=== PATIENT | female | born 1955 | race Caucasian/White ===

== ENCOUNTER 2017-05-02 22:28 | Emergency (ER) | payer MEDICAID ==
[~2017-05-02] VITALS: Ht 162.6 cm; Wt 67.0 kg
[~2017-05-02 22:28] MED LIST: ALBU18HF INH; AMOX-291 PO; ASPI325T17 PO; BENZ-17 PO; DIPH25CA61 PO; DOCU-131 PO; GABA300C10 PO; HYDR-3240 PO; HYDR25TA6 PO; HYPR15DR5 RIGHTEYE; IBUP-1222 PO; IBUP200C5 PO; LORA10TA3 PO; MELO7.5T31 PO; MINE3.5O31 RIGHTEYE; OMEP-110 PO; OXYC-302 PO; OXYC1TAB8 PO; PRED5TAB PO; ZOLP-413 PO
[2017-05-02 22:31] VITALS: BP 186/96
[2017-05-02] MEDS ORDERED: OXYcodone/APAP 5/325MG TABLET ONE (23:24)
[2017-05-02] MEDS ORDERED: OXYcodone/APAP 5/325MG TABLET PO ONE (23:30)
[2017-05-02] MEDS ORDERED: ALBUTEROL/IPRATROPIUM 2.5MG/0.5MG, 3 ML NEB ONE (23:30)
[2017-05-03] MEDS ORDERED: DEXAMETHASONE 4 MG TABLET PO ONE (00:30)
[2017-05-03] MEDS ORDERED: ACYCLOVIR 800 MG TABLET PO ONE (00:30)
[2017-05-03] MEDS ORDERED: DEXAMETHASONE 4 MG/ML, 5ML ONE (00:41)
== END 2017-05-03 01:07 | disposition home or self-care (01) ==
LOC: ED 05-03 01:00
DX: B02.9 Zoster without complications (principal); I10 Essential (primary) hypertension; Z79.52 Long term (current) use of systemic steroids
CPT/HCPCS: 71020; 93005; 94640; 99284; J7620

== ENCOUNTER 2017-06-08 04:20 | Emergency (ER) | payer MEDICAID ==
[~2017-06-08] VITALS: Ht 162.6 cm; Wt 68.0 kg
[2017-06-08] MEDS ORDERED: SODIUM CHLORIDE 0.9% 1,000 ML IV ONE (04:22)
[2017-06-08] MEDS ORDERED: ALBUTEROL/IPRATROPIUM 2.5MG/0.5MG, 3 ML ONE (04:26)
[2017-06-08] MEDS ORDERED: SODIUM CHLORIDE 0.9% 1,000ML IVBOLUS ONE (04:30)
[2017-06-08] MEDS ORDERED: LORazepam 2 MG/ML, 1ML IVP ONE (04:30)
[2017-06-08] MEDS ORDERED: PLEASE ENTER HEIGHT AND WEIGHT MC SCH (04:30)
[2017-06-08] MEDS ORDERED: ALBUTEROL/IPRATROPIUM 2.5MG/0.5MG, 3 ML NPPB PRN (04:30)
[2017-06-08] MEDS ORDERED: MAGNESIUM SULFATE PMX 2GM/50ML 50 ML IV ONE (04:30)
[2017-06-08] MEDS ORDERED: methylPREDNISolone SOD SUCC 125 MG/2 ML IVP ONE (04:30)
[2017-06-08] MEDS ORDERED: SODIUM CHLORIDE FLUSH 10ML SYR IVF ONE (04:30)
[2017-06-08] MEDS ORDERED: methylPREDNISolone SOD SUCC 125 MG/2 ML ONE (04:33)
[2017-06-08] MEDS ORDERED: LORazepam 2 MG/ML, 1ML ONE (04:34)
[2017-06-08] MEDS: ALBUTEROL/IPRATROPIUM 2.5MG/0.5MG, 3 ML NPPB SCH ×2 (04:34→04:56)
[2017-06-08 05:02] LABS: BASOPHILS # (AUTO) 0.03 x10^3/uL (0-0.1); BASOPHILS % (AUTO) 1 % (0-1); EOSINOPHILS % (AUTO) 7 % (1-7); LYMPHOCYTES # (AUTO) 2.38 x10^3/uL (1-3.4); LYMPHOCYTES % (AUTO) 43 % (22-44); MD NO; MEAN CORPUSCULAR HEMOGLOBIN 29.3 pg (27.0-34.8); MEAN CORPUSCULAR HGB CONC 33.3 g/dL (32.4-35.8); MEAN PLATELET VOLUME 8.7 fL (7.4-10.4); MONOCYTES # (AUTO) 0.35 x10^3/uL (0.2-0.8); MONOCYTES % (AUTO) 6 % (2-9); NEUTROPHILS # (AUTO) 2.42 x10^3/uL (1.8-6.8); NEUTROPHILS % (AUTO) 43 % (42-75); PLATELET COUNT 193 x10^3/uL (130-400); RED BLOOD COUNT 5.01 x10^6/uL (3.82-5.3); RED CELL DISTRIBUTION WIDTH 13.3 % (9.6-15.2)
[2017-06-08] MEDS ORDERED: OXYC1TAB7 PO (05:10)
[2017-06-08] MEDS ORDERED: ACYC800T4 PO (05:10)
[2017-06-08 05:14] LABS: ALANINE AMINOTRANSFERASE 21 U/L (12-78); ALBUMIN 4.2 g/dL (3.4-5.0); ANION GAP 3 mmol/L (5-15); CALCIUM 9.1 mg/dL (8.5-10.1); CHLORIDE 106 mmol/L (98-107)
[2017-06-08 05:18] LABS: ALKALINE PHOSPHATASE 89 U/L (45-117); BILIRUBIN,TOTAL 0.3 mg/dL (0.2-1.0); TOTAL PROTEIN 7.8 g/dL (6.4-8.2); TROPONIN I < 0.015 ng/mL (0.000-0.045)
[2017-06-08 06:06] VITALS: BP 133/79
[2017-06-08 06:13] LABS: RAPID INFLUENZA A Negative (Negative); RAPID INFLUENZA B Negative (Negative)
== END 2017-06-08 10:38 | disposition home or self-care (01) ==
LOC: ED 05:33 → EDIP 06:03 → UNDOADMIN 06:03 → SUATTDRO 06:06 → UNDODISIN 10:35
PROVIDERS: ATTEND Hospitalist
DX: J45.51 Severe persistent asthma with (acute) exacerbation (principal); J45.52 Severe persistent asthma with status asthmaticus; J96.01 Acute respiratory failure with hypoxia; I10 Essential (primary) hypertension
CPT/HCPCS: 36415; 36600; 71045; 80053; 82803; 83880; 84484; 85025; 87040; 87400; 93005; 94640; 96361; 96374; 96375; 99291; J2060; J2930; J3475; J7030; J7620

== ENCOUNTER 2017-07-31 08:38 | Inpatient (IN) | payer MEDICAID ==
[~2017-07-31] VITALS: Ht 162.6 cm; Wt 66.0 kg
[~2017-07-31 08:38] MED LIST changes: +ACYC800T4 PO; +OXYC1TAB7 PO
[2017-07-31] MEDS ORDERED: methylPREDNISolone SOD SUCC 125 MG/2 ML ONE (08:53)
[2017-07-31] MEDS ORDERED: methylPREDNISolone SOD SUCC 125 MG/2 ML IVP ONE (09:00)
[2017-07-31] MEDS ORDERED: SODIUM CHLORIDE FLUSH 10ML SYR IVF ONE (09:00)
[2017-07-31] MEDS ORDERED: IPRATROPIUM 0.5 MG/2.5 ML INHA NPPB ONE (09:00)
[2017-07-31] MEDS ORDERED: ALBUTEROL 0.5%, 20ML NPPBCONT PRN (09:00)
[2017-07-31] MEDS ORDERED: ALBUTEROL 0.5%, 20ML ONE (09:00)
[2017-07-31] MEDS ORDERED: IPRATROPIUM 0.5 MG/2.5 ML INHA ONE (09:01)
[2017-07-31 09:23] LABS: BASOPHILS # (AUTO) 0.03 x10^3/uL (0-0.1); BASOPHILS % (AUTO) 0 % (0-1); EOSINOPHILS # (AUTO) 0.27 x10^3/uL (0-0.4); EOSINOPHILS % (AUTO) 3 % (1-7); LYMPHOCYTES % (AUTO) 12 % (22-44); MD NO; MEAN CORPUSCULAR HEMOGLOBIN 29.7 pg (27.0-34.8); MEAN CORPUSCULAR HGB CONC 34.3 g/dL (32.4-35.8); MEAN CORPUSCULAR VOLUME 86.6 fL (80-100); MEAN PLATELET VOLUME 8.8 fL (7.4-10.4); MONOCYTES # (AUTO) 0.42 x10^3/uL (0.2-0.8); MONOCYTES % (AUTO) 4 % (2-9); NEUTROPHILS # (AUTO) 8.86 x10^3/uL (1.8-6.8); NEUTROPHILS % (AUTO) 81 % (42-75); PLATELET COUNT 228 x10^3/uL (130-400); RED BLOOD COUNT 5.23 x10^6/uL (3.82-5.3); RED CELL DISTRIBUTION WIDTH 12.1 % (9.6-15.2)
[2017-07-31 09:30] LABS: ALANINE AMINOTRANSFERASE 15 U/L (12-78); ALBUMIN 4.9 g/dL (3.4-5.0); ANION GAP 7 mmol/L (5-15); CALCIUM 9.4 mg/dL (8.5-10.1); CHLORIDE 105 mmol/L (98-107); CREATININE 0.66 mg/dL (0.55-1.02)
[2017-07-31 09:34] LABS: ALKALINE PHOSPHATASE 90 U/L (45-117); BILIRUBIN,TOTAL 0.9 mg/dL (0.2-1.0); TOTAL PROTEIN 8.3 g/dL (6.4-8.2); TROPONIN I < 0.015 ng/mL (0.000-0.045)
[2017-07-31] MEDS ORDERED: ACETAMINOPHEN 325 MG TABLET PO PRN (12:00)
[2017-07-31] MEDS ORDERED: POLYETHYLENE GLYCOL 17 GM PACKET PO PRN (12:00)
[2017-07-31] MEDS ORDERED: DOCUSATE 100 MG CAPSULE PO PRN (12:00)
[2017-07-31] MEDS ORDERED: ENALAPRILAT 1.25 MG/ML, 2ML IVPush PRN (12:00)
[2017-07-31] MEDS ORDERED: BISACODYL 10 MG SUPP PR PRN (12:00)
[2017-07-31] MEDS ORDERED: hydrALAzine 20 MG/ML, 1ML IVPush PRN (12:00)
[2017-07-31] MEDS ORDERED: ONDANSETRON 2MG/ML, 2ML IVPush PRN (12:00)
[2017-07-31] MEDS ORDERED: GUAIFENESIN/DM 200-20MG, 10ML UDC PO PRN (12:00)
[2017-07-31 12:13] VITALS: BP 102/69
[2017-07-31] MEDS ORDERED: TEMPLATE NON-FORMULARY MED. (Albuterol Sulfate (Ventolin Hfa) 2 PUFF(S)) INH PRN (12:30)
[2017-07-31] MEDS ORDERED: ALBUTEROL SULFATE 2.5 MG/3 ML HHN PRN (12:30)
[2017-07-31] MEDS: ENOXAPARIN 40 MG/0.4 ML SQ SCH (13:23)
[2017-07-31] MEDS: methylPREDNISolone SOD SUCC 125 MG/2 ML IVPush SCH ×2 (14:51→21:09)
[2017-07-31] MEDS: ALBUTEROL SULFATE 2.5 MG/3 ML NPPB SCH ×3 (15:00→22:00)
[2017-07-31 19:26] VITALS: BP 118/68
[2017-08-01 03:20] VITALS: BP 107/63
[2017-08-01] MEDS: methylPREDNISolone SOD SUCC 125 MG/2 ML IVPush SCH ×4 (03:36→23:00)
[2017-08-01 05:31] LABS: CHLORIDE 105 mmol/L (98-107)
[2017-08-01 05:39] LABS: BASOPHILS # (AUTO) 0.01 x10^3/uL (0-0.1); BASOPHILS % (AUTO) 0 % (0-1); EOSINOPHILS % (AUTO) 0 % (1-7); LYMPHOCYTES # (AUTO) 0.88 x10^3/uL (1-3.4); LYMPHOCYTES % (AUTO) 8 % (22-44); MD NO; MEAN CORPUSCULAR HEMOGLOBIN 29.7 pg (27.0-34.8); MEAN CORPUSCULAR HGB CONC 34.5 g/dL (32.4-35.8); MEAN CORPUSCULAR VOLUME 86.1 fL (80-100); MEAN PLATELET VOLUME 9.1 fL (7.4-10.4); MONOCYTES # (AUTO) 0.11 x10^3/uL (0.2-0.8); MONOCYTES % (AUTO) 1 % (2-9); NEUTROPHILS # (AUTO) 10.33 x10^3/uL (1.8-6.8); NEUTROPHILS % (AUTO) 91 % (42-75); PLATELET COUNT 221 x10^3/uL (130-400); RED BLOOD COUNT 4.46 x10^6/uL (3.82-5.3); RED CELL DISTRIBUTION WIDTH 12.6 % (9.6-15.2)
[2017-08-01 05:46] LABS: ANION GAP 9 mmol/L (5-15); CREATININE 0.61 mg/dL (0.55-1.02)
[2017-08-01] MEDS: ALBUTEROL SULFATE 2.5 MG/3 ML NPPB SCH ×5 (06:00→22:00)
[2017-08-01 07:13] VITALS: BP 103/69
[2017-08-01] MEDS: ENOXAPARIN 40 MG/0.4 ML SQ SCH (12:57)
[2017-08-01 13:59] VITALS: BP 122/67
[2017-08-01 20:40] VITALS: BP 140/80
[2017-08-01 20:58] LABS: TROPONIN I < 0.015 ng/mL (0.000-0.045)
[2017-08-02 02:00] VITALS: BP 112/58
[2017-08-02] MEDS: ALBUTEROL SULFATE 2.5 MG/3 ML NPPB SCH ×2 (06:00→10:02)
[2017-08-02] MEDS: methylPREDNISolone SOD SUCC 125 MG/2 ML IVPush SCH ×2 (06:37→12:28)
[2017-08-02 06:41] VITALS: BP 124/73
[2017-08-02] MEDS ORDERED: PRED20TA PO (12:13)
[2017-08-02] MEDS: ENOXAPARIN 40 MG/0.4 ML SQ SCH (12:35)
== END 2017-08-02 13:57 | disposition home or self-care (01) | DRG 189 ==
LOC: ED 10:32 → EDIP 10:56 → 3NE 11:34 → DCLOUNGE 08-02 13:42
PROVIDERS: ADMIT Family Medicine; ATTEND Family Medicine
DX: J96.01 Acute respiratory failure with hypoxia (principal); J45.52 Severe persistent asthma with status asthmaticus; J44.9 Chronic obstructive pulmonary disease, unspecified; F41.9 Anxiety disorder, unspecified; I10 Essential (primary) hypertension; D72.829 Elevated white blood cell count, unspecified; N39.3 Stress incontinence (female) (male); Z82.3 Family history of stroke; Z82.49 Family history of ischemic heart disease and other diseases of the circulatory system; Z86.73 Personal history of transient ischemic attack (TIA), and cerebral infarction without residual deficits
CPT/HCPCS: 36415; 71045; 80048; 80053; 83880; 84145; 84443; 84484; 85025; 93005; 94640; 94644; 96374; J1650; J7613; J7644; J2930

== ENCOUNTER → 2018-05-23 | Outpatient (CLI) | payer MEDICARE ==
[~2018-05-23] MED LIST changes: +IBUP-1623 PO; -IBUP200C5 PO; +LORA-247 PO; -LORA10TA3 PO; +PRED20TA PO
[2018-05-23 10:58] LABS: HCT (SEDRATE) 42.8 % (34.6-47.8)
== END | disposition home or self-care (01) ==
LOC: LAB 10:38
PROVIDERS: ATTEND Orthopaedic Surgery
DX: T84.84XA Pain due to internal orthopedic prosthetic devices, implants and grafts, initial encounter (principal); T84.032A Mechanical loosening of internal right knee prosthetic joint, initial encounter; Z96.651 Presence of right artificial knee joint
CPT/HCPCS: 36415; 85651; 86140

== ENCOUNTER 2018-08-29 15:40 | Day surgery (SDC) | payer MEDICARE ==
[~2018-08-29] VITALS: Ht 162.6 cm; Wt 61.5 kg
[~2018-08-29 15:40] MED LIST changes: +ACETAMINOPHEN 325 MG TABLET PO PRN; +ATOR20TA37 PO; +CA C1TAB63 PO; +CHOL5000 PO; +CYAN1TAB29 PO; +DEXAMETHASONE 4 MG/ML, 1ML ONE; +FENTANYL PF 250 MCG/5ML ONE; +FLUT1AER INH; +HYDROmorphone 1 MG/ML, 1ML INJ IM PRN; +KETOROLAC 30 MG/1 ML IVPush SCH; +LISI5TAB7 PO; +MELO15TA24 PO; +METF500T17 PO; +MIDAZOLAM 1 MG/ML, 2ML ONE; +ONDANSETRON 2MG/ML, 2ML IVPush PRN; +ONDANSETRON 2MG/ML, 2ML ONE; +OXYC5CAP2 PO; +OXYcodone 5 MG/5 ML ORAL.SOL UDC PO PRN; +PLEASE ENTER HEIGHT AND WEIGHT MC SCH; +PROMETHAZINE 25 MG/ML, 1ML IM PRN; +PROPOFOL 10 MG/ML, 20ML ONE; +ROPIvacaine/PF 0.5%, 30 ML ONE; +TRAM50TA2 PO
[2018-08-29] MEDS ORDERED: LACTATED RINGERS 1,000 ML IV SCH (16:04)
[2018-08-29 16:05] VITALS: BP 133/80
[2018-08-29] MEDS ORDERED: VENTOLIN (16:16)
[2018-08-29] MEDS ORDERED: MEPERIDINE/PF 25MG/0.5ML IVPush PRN (16:30)
[2018-08-29] MEDS ORDERED: METOPROLOL 1 MG/ML, 5ML IV PRN (16:30)
[2018-08-29] MEDS ORDERED: HYDROmorphone 2 MG/ML, 1ML IVPush PRN (16:30)
[2018-08-29] MEDS ORDERED: FENTANYL PF 100 MCG/2ML IV PRN (16:30)
[2018-08-29] MEDS ORDERED: OXYcodone 5 MG/5 ML ORAL.SOL UDC PO PRN (16:30)
[2018-08-29] MEDS ORDERED: DIPHENHYDRAMINE 50 MG/ML, 1ML IVPush PRN (16:30)
[2018-08-29] MEDS ORDERED: PROCHLORPERAZINE 5 MG/ML, 2ML IV PRN (16:30)
[2018-08-29] MEDS ORDERED: hydrALAzine 20 MG/ML, 1ML IV PRN (16:30)
[2018-08-29] MEDS ORDERED: HALOPERIDOL 5 MG/ML IV PRN (16:30)
[2018-08-29] MEDS ORDERED: PROMETHAZINE 25 MG/ML, 1ML IV PRN (16:30)
[2018-08-29] MEDS ORDERED: LABETALOL 5MG/ML, 20ML IV PRN (16:30)
== END 2018-08-29 18:39 | disposition home or self-care (01) ==
LOC: OR 15:40
PROVIDERS: ATTEND Orthopaedic Surgery
DX: M24.661 Ankylosis, right knee (principal); Z96.651 Presence of right artificial knee joint; Z87.891 Personal history of nicotine dependence; Z72.89 Other problems related to lifestyle
CPT/HCPCS: 27570; J1100; J2250; J2405; J2704; J2795; J3010; J7120